=== PATIENT | male | born 1995 | race Two or more races ===

== ENCOUNTER 2022-07-10 12:16 | Emergency (ER) | payer MEDICAID ==
[~2022-07-10] VITALS: Ht 175.3 cm; Wt 68.0 kg
[2022-07-10 12:46] LABS: *BILIRUBIN,URIN NEGATIVE (NEGATIVE); *BLOOD, URINE NEGATIVE (NEGATIVE); *CLARITY,URINE CLEAR (CLEAR); *COLOR,URINE YELLOW (YELLOW); *KETONES,URINE NEGATIVE (NEGATIVE); *UROBILINOGEN,URINE 0.2 E.U./dl (NORMAL); LEUKOCYTE ESTERASE ,URINE NEGATIVE (NEGATIVE); NITRITE, URINE NEGATIVE (NEGATIVE); UGLUCOSE NEGATIVE (NEGATIVE)
[2022-07-10] MEDS ORDERED: DOXYCYCLINE HYCLATE 100 MG TABLET ONE (13:29)
[2022-07-10] MEDS ORDERED: DOXYCYCLINE HYCLATE 100 MG TABLET PO ONE (13:30)
[2022-07-10] MEDS ORDERED: DOXY100C5 PO ×2 (13:37→14:56)
[2022-07-10 15:13] VITALS: BP 129/63
--- NOTE | 2022-07-10 15:21 | NUR ---
Patient is stable, no sign of distress noted. Patient teaching done.
== END 2022-07-10 15:15 | disposition home or self-care (01) ==
LOC: ER 12:16
DX: N34.2 Other urethritis (principal); J06.9 Acute upper respiratory infection, unspecified; Z20.822 Contact with and (suspected) exposure to COVID-19; Z87.442 Personal history of urinary calculi; Z91.018 Allergy to other foods; Z28.310 Unvaccinated for COVID-19
CPT/HCPCS: 36415; 76770; 86592; A4663